=== PATIENT | male | born 1935 | race Caucasian/White ===

== ENCOUNTER → 2017-11-03 | Outpatient (CLI) | payer MEDICARE, OTHER ==
--- NOTE | 2017-11-03 14:37 | RADIOLOGY REPORT (SQ) ---
EXAM DESCRIPTION: CHEST PA/LATERAL COMPLETED DATE/TIME: 11/03/2017 2:19 pm REASON FOR STUDY: PLEURAL EFFUSION COMPARISON: AP chest 01/28/2015, 01/27/2015 Abdominal films 01/27/2015 CT abdomen pelvis 01/27/2015 EXAM PARAMETERS: NUMBER OF VIEWS: two views TECHNIQUE: Digital Frontal and Lateral radiographic views of the chest acquired. RADIATION DOSE: NA LIMITATIONS: none FINDINGS: LUNGS AND PLEURA: Chronic blunting in the left lateral costophrenic sulcus is present unch anged 2014, likely representing a small loculated effusion. Few left retrocardiac air bronchograms from chronic collapse/ consolidation unchanged from 2015. Right hemithorax unremarkable. No right or left pneumothorax MEDIASTINUM AND HILAR STRUCTURES: No masses or contour abnormalities. HEART AND VASCULAR STRUCTURES: No cardiomegaly. Old sternotomy for CABG BONES: No acute findings. HARDWARE: Old sternotomy for CABG OTHER: No other significant finding. IMPRESSION: Chronic loculated left pleural effusion unchanged from plain films in 2015 Chronic scarring or atelectasis at the left lung base Old sternotomy for CABG. No cardiomegaly TECHNICAL DOCUMENTATION: JOB ID: [id number] [employer]- All Rights Reserved Reading location - IP/workstation name: [email or web address]
== END ==
LOC: OD 10:16
PROVIDERS: ATTEND Specialist
DX: J90 Pleural effusion, not elsewhere classified (principal)
CPT/HCPCS: 71046

== ENCOUNTER 2019-01-20 09:02 | Observation (INO) | payer MEDICARE, OTHER ==
--- NOTE | 2019-01-20 12:44 | ER Document Report ---
Entered by SEAN COON SCRIBE 01/20/19 1125 Acting as scribe for:JORDAN CHAUDHARY MD ED Fall - General Chief Complaint: Fall Stated Complaint: FALL/BACK AND LEFT KNEE PAIN Time Seen by Provider: 01/20/19 11:01 Mode of Arrival: Ambulatory Information source: Patient Notes: Patient is an 83-year-old male who presents to the emergency department today with complaints of a fall that occurred prior to arrival. Patient states he was bending over to bean picker an ice cube and lost his balance, falling backwards. Patient states his back struck cabinets and then he lied down to the floor. Patient complains of right mid back pain. Patient also has skin tears to bila teral elbows and left knee discomfort. Patient states he does not think he hit his head. TRAVEL OUTSIDE OF THE [place] IN LAST 30 DAYS: No - Related data Allergies/Adverse Reactions: Penicillins Allergy (Unknown, Verified 01/20/19 09:14) procainamide [Procainamide] Allergy (Verified 01/20/19 09:14) Past Medical History - General Information source: Patient - Social History Smoking Status: Current Every Day Smoker - smokes 1 cigar daily Cigarette use (# per day): No - quit in 1977 Frequency of alcohol use: every evening Drug Abuse: None Lives with: Family Family History: Reviewed & Not Pertinent Patient has suicidal ideation: No Patient has homicidal ideation: No - Past Medical History Cardiac Medical History: Reports: Hx Coronary Artery Disease, Hx Heart Attack, Hx Hypercholesterolemia, Hx Hypertension Endocrine Medical History: Reports: Hx Diabetes Mellitus Type 2 - no med post weight loss Past Surgical History: Reports: Hx Appendectomy, Hx Carotid Endarterectomy - left, Hx Coronary Artery Bypass Graft, Hx Inguinal Hernia - left, Hx Tonsillec julia, Other - Parotid gland removed due to obstruction Review of Systems - Review of Systems Constitutional: No symptoms reported EENT: No symptoms reported Cardiovascular: No symptoms reported Respiratory: No symptoms reported Gastrointestinal: No symptoms reported Genitourinary: No symptoms reported Male Genitourinary: No symptoms reported Musculoskeletal: See HPI, Back pain, Joint pain - left knee pain Skin: See HPI, Other - skin tears to bilateral elbows Hematologic/Lymphatic: No symptoms reported Neurological/Psychological: No symptoms reported -: Yes All other systems reviewed and negative Physical Exam - Vital signs Vitals: Temp Pulse Resp BP Pulse Ox 97.6 F 70 16 136/50 H 96 01/20/19 09:07 01/20/19 09:07 01/20/19 09:07 01/20/19 09:07 01/20/19 09:07 - Notes Notes: Physical Exam: General: Alert, appears well. HEENT: Normocephalic. Atraumatic. PERRL. Extraocular movements intact. Oropharynx clear. Neck: Supple. Non-tender. Respiratory: No respiratory distress. Clear and equal breath sounds bilaterally. Cardiovascular: 3/6 systolic murmur. Regular rate and rhythm. Abdominal: Normal Inspection. Non-tender. No distension. Normal Bowel Sounds. Back: Mid to lower thoracic spine tenderness with palpation. Upper lumbar spine tenderness with palpation. Right sided posterior rib tenderness with palpation. Extremities: Moves all four extremities. Upper extremities: Normal inspection. Normal ROM. Lower extremities: Minimal left lateral anterior knee tenderness with palpation. No effusion. No ligamentous laxity. No pain with flexion or extension of the knee. No pain with anterior and posterior drawer testing. Neurological: Normal cognition. AAOx4. Normal speech. Psychological: Normal affect. Normal Mood. Skin: Warm. Dry. Normal color. Course - Vital Signs Vital signs: Temp Pulse Resp BP Pulse Ox 97.6 F 70 14 142/61 H 97 01/20/19 09:07 01/20/19 09:07 01/20/19 14:02 01/20/19 14:02 01/20/19 14:02 - Laboratory Result Diagrams: 01/20/19 14:40 01/20/19 14:40 Laboratory results interpreted by me: 01/20/19 01/20/19 01/20/19 11:45 14:40 14:40 WBC 3.6 L RBC 2.69 L Hgb 9.5 L Hct 27.9 L MCV 103 H MCH 35.4 H RDW 14.5 H Plt Count 130 L Lymph % (Auto) 11.3 L Absolute Lymphs (auto) 0.4 L Sodium 136.6 L Albumin 3.1 L Urine Ketones TRACE H Ur Leukocyte Esterase MODERATE H Urine Ascorbic Acid 20 H - Diagnostic Test Radiology reviewed: Image reviewed, Reports reviewed - CT scan of the lumbar spine shows multilevel degenerative changes with out evidence for acute fracture. CT scan of the chest and thoracic spine shows nondisplaced fracture posterior right eighth rib, lateral right ninth rib, and mildly displaced fracture at the lateral right 10th rib. There is no acute fracture or s ubluxation of the thoracic spine. There is a 1 cm nodularity along the right side of the trachea at the thoracic and, correlation with bronchoscopy recommended. There are airspace opacities at the right lower lobe, left lower lobe and lingula which may be atelectasis versus pneumonia. - EKG Interpretation by Me EKG shows normal: Sinus rhythm, [place], Intervals, ST-T Waves. abnormal: QRS Complexes - Probable old anterior WI Rate: Normal - 70 Rhythm: NSR When compared to previous EKG there are: No significant change - Consults Seymour Fu NP Time consulted: 14:16 Consulted provider: will come to ER Critical Care Note - Critical Care Note Total time excluding time spent on procedures (mins): 30 Discharge - Discharge Clinical Impression: Atelectasis of both lungs Right rib fracture Qualifiers: Encounter type: initial encounter Rib fracture type: multiple ribs Fracture typ e: closed Qualified Code(s): S22.41XA - Multiple fractures of ribs, right side, initial encounter for closed fracture Urinary tract infection Qualifiers: Urinary tract infection type: site unspecified Hematuria presence: without hematuria Qualified Code(s): N39.0 - Urinary tract infection, site not specified Condition: Stable Disposition: ADMITTED INPATIENT Unit Admitted: AYLA Scribe Attestation: 01/20/19 11:58 I personally performed the services described in the documentation, reviewed and edited the documentation which was dictated to the scribe in my presence, and it accurately records my words and actions. I personally performed the services described in the documentation, reviewed and edited the documentation which was dictated to the scribe in my presence, and it accurately records my words and actions.
--- NOTE | 2019-01-20 13:49 | RADIOLOGY REPORT (SQ) ---
EXAM DESCRIPTION: CT CHEST WITHOUT; CT THORACIC SPINE WITHOUT COMPLETED DATE/TIME: 01/20/2019 12:53 pm REASON FOR STUDY: Fall, R post rib,thoracic spine,lumbar spine pain COMPARISON: Chest x-ray 11/03/2017, CT abdomen and pelvis 03/29/2015. CT thoracic spine 01/20/2019. TECHNIQUE: CT scan performed of the chest and thoracic spine without intravenous contrast. Images r eviewed with lung, soft tissue and bone windows. Reconstructed coronal and sagittal MPR images revie wed. All images stored on PACS. All CT scanners at this facility use dose modulation, iterative reconstruction, and/or weight based d osing when appropriate to reduce radiation dose to as low as reasonably achievable (ALARA). [facility]: Dose Right [facility]: CareDose [facility]: Dose Right [facility]: Teradose 4D [facility]: Smart Technologies RADIATION DOSE: CT Rad equipment meets quality standard of care and radiation dose reduction techniq ues were employed. CTDIvol: 7.7 mGy. DLP: 343 mGy-cm.; CT Rad equipment meets quality standard of car e and radiation dose reduction techniques were employed. CTDIvol: 21.6 mGy. DLP: 670 mGy-cm. mGy. LIMITATIONS: No technical limitations. FINDINGS: LUNGS AND PLEURA: There are mild bile emphysematous changes. There are left-sided pleural calcifications. There is a small left-sided pleural effusion with airspace opacities at the left lo wer lobe and lingula. Airspace opacities are also noted throughout the right lower lobe. No pneumot horax. HILAR AND MEDIASTINAL STRUCTURES: No identified masses or abnormal nodes. No pneumomediastinum or me diastinal hematoma. There is a 1.0 cm nodularity along the right side of the trachea at the thoracic inlet. HEART AND VASCULAR STRUCTURES: Status post open heart surgery. No pericardial effusion. Atheroscler otic calcifications at the thoracic aorta. No thoracic aortic aneurysm. UPPER ABDOMEN: No significant findings. Limited exam. BONES: Degenerative changes are noted at the right glenohumeral joint. There are healed left-sided r ib fractures. No displaced fracture at the sternum. There is a nondisplaced fracture at the posterior right 8th rib. There is a nondisplaced fracture at the lateral right 9th rib. There is a mildly displaced fracture at the lateral right 10th rib. HARDWARE: Sternotomy wires are present. THORACIC SPINE: There is increased thoracic kyphosis the vertebral body heights and alignment are ma intained. There is multilevel degenerative disc disease and osteophytosis. There is no acute fractu re or traumatic subluxation. The prevertebral and paraspinal soft tissues are unremarkable. IMPRESSION: 1. Acute right rib fractures. No pneumothorax. Airspace opacities at the right lower lobe, may represent pneumonia vs pulmonary contusions, given the history of recent trauma. 2. Small left-sided pleural effusion with airspace opacities at the left lower lobe and lingula, may be secondary to atelectasis or pneumonia. 3. No acute fracture at the thoracic spine. Degenerative changes. 4. 1.0 cm nodularity along the right side of the trachea at the thoracic inlet. Correlation with br onchoscopy recommended to evaluate for an endobronchial lesion. TECHNICAL DOCUMENTATION: JOB ID: [id number] Quality ID # [id number]: Final reports with documentation of one or more dose reduction techniques (e.g., Au tomated exposure control, adjustment of the mA and/or kV according to patient size, use of iterative reconstruction technique) 2010 [employer]- All Rights Reserved Reading location - IP/workstation name: [email or web address]
--- NOTE | 2019-01-20 13:58 | RADIOLOGY REPORT (SQ) ---
EXAM DESCRIPTION: CT LUMBAR SPINE WITHOUT COMPLETED DATE/TIME: 01/20/2019 12:53 pm REASON FOR STUDY: Fall, R post rib,thoracic spine,lumbar spine pain COMPARISON: CT abdomen and pelvis 01/27/2015, CT chest and CT thoracic spine 01/20/2019. TECHNIQUE: Axial images acquired through the lumbar spine without intravenous contrast. Images revie wed with lung, soft tissue and bone windows. Reconstructed coronal and sagittal MPR images reviewed. Images stored on PACS. All CT scanners at this facility use dose modulation, iterative reconstruction, and/or weight based d osing when appropriate to reduce radiation dose to as low as reasonably achievable (ALARA). [facility]: Dose Right [facility]: CareDose [facility]: Dose Right [facility]: Teradose 4D [facility]: [employer] RADIATION DOSE: mGy. LIMITATIONS: None. FINDINGS: SOFT TISSUES: No soft tissue swelling. ALIGNMENT: There is levoscoliosis of the lumbar spine. VERTEBRAL BODIES: No acute fracture or dislocation. DISCS: There is multilevel degenerative disc disease and osteophytosis. PEDICLES, TRANSVERSE PROCESSES: No acute fracture or dislocation. FACETS, POSTERIOR ELEMENTS: No acute fracture or dislocation. There is multilevel facet arthropathy. Varying degrees of spinal stenosis throughout the lumbar spine, worse at L4-L5. HARDWARE: None in the spine. VISUALIZED RIBS: No fractures. OTHER: Atherosclerotic calcifications at the abdominal aorta and its branches. Ectatic infrarenal ab dominal aorta measuring up to 2.2 cm. IMPRESSION: Multilevel degenerative changes at the lumbar spine with no evidence for acute fracture. TECHNICAL DOCUMENTATION: JOB ID: [id number] [facility] Quality ID # [id number]: Final reports with documentation of one or more dose reduction techniques (e.g., Au tomated exposure control, adjustment of the mA and/or kV according to patient size, use of iterative reconstruction technique) 2010 [employer]- All Rights Reserved Reading location - IP/workstation name: [email or web address]
[2019-01-20 14:42] LABS: AMORPHOUS SEDIMENT,URINE TRACE /HPF; APPEARANCE,URINE CLOUDY; BILIRUBIN,URINE NEGATIVE (NEGATIVE); COLOR,URINE YELLOW; GLUCOSE, URINE NEGATIVE (NEGATIVE); KETONES,URINE TRACE mg/dL (NEGATIVE); LEUKOCYTE ESTERASE,URINE MODERATE (NEGATIVE); NITRITE,URINE NEGATIVE (NEGATIVE); PROTEIN,URINE NEGATIVE (NEGATIVE); URINE SPECIFIC GRAVITY 1.017; UROBILINOGEN,URINE NEGATIVE mg/dL (<2.0)
[2019-01-20] MEDS ORDERED: TEMAZEPAM 7.5 MG CAPSULE PO PRN (14:47)
[2019-01-20] MEDS ORDERED: ONDANSETRON HCL INJ/PF 4 MG/2 ML SDV IV PRN (14:47)
[2019-01-20] MEDS ORDERED: NORMAL SALINE 1000 ML 1,000 ML IV PRN (14:47)
[2019-01-20] MEDS ORDERED: MAG HYDROX/AL HYDROX/SIMETH SUSP 30 ML UDCUP PO PRN (14:47)
[2019-01-20] MEDS ORDERED: HYDROMORPHONE HCL INJ/PF 2 MG/ML AMPULE IV PRN (15:04)
--- NOTE | 2019-01-20 15:04 | PDOC H&P ---
History of Present Illness Admission Date/PCP: 01/20/19 14:45 JOYCELYN GIBSON MD Patient complains of: Rib pain History of Present Illness: RAYMOND CYR is a 83 year old male who presents emergency department with complaints of a fall that occurred on prior date. Patient states his been over picking up an ice cube lost his balance and fell backwards. He states he is back stretch And he lie down on the floor. Patient complains of right mid back pain was found to have multiple rib fractures. Patient was also found to have an incidental bronchial lesion. Patient has a skin tears on his bilateral elbows and left knee discomfort. He has had no treatment prior to arrival all active is aggravating factor. Past Medical History Cardiac Medical History: Reports: Coronary Artery Disease, Myocardial Infarction , Hyperlipidema, Hypertension Endocrine Medical History: Reports: Diabetes Mellitus Type 2 - no med post weight loss Past Surgical History Past Surgical History: Reports: Appendectomy, Carotid Endarterectomy - left, Coronary Artery Bypass Graft, Tonsillectomy, Other - Parotid gland removed due to obstruction Social History Information Source: Patient Lives with: Family Smoking Status: Current Every Day Smoker - smokes 1 cigar daily Frequency of Alcohol Use: Social Amount of Alcoholic Beverages Per Day: Several drinks daily Hx Recreational Drug Use: No Drugs: None Hx Prescription Drug Abuse: No - Advance Directive Resuscitation Status: Do Not Resuscitate Family History Family History: Hypertension Parental Family History Reviewed: Yes Children Family History Reviewed: Yes Sibling(s) Family History Reviewed.: Yes Medication/Allergy Allergies/Adverse Reactions: Penicillins Allergy (Unknown, Verified 01/20/19 09:14) procainamide [Procainamide] Allergy (Verified 01/20/19 09:14) Review of Systems Constitutional: ABSENT: chills, fever(s), headache(s), weight gain, weight loss Eyes: ABSENT: visual disturbances Ears: ABSENT: hearing changes Cardiovascular: ABSENT: chest pain, dyspnea on exertion, edema, orthropnea, palpitations Respiratory: ABSENT: cough, hemoptysis Gastrointestinal: ABSENT: abdominal pain, constipation, diarrhea, hematemesis, hematochezia, nausea, vomiting Genitourinary: ABSENT: dysuria, hematuria Musculoskeletal: PRESENT: other - Rib pain. ABSENT: joint swelling Integumentary: ABSENT: rash, wounds Neurological: ABSENT: abnormal gait, abnormal speech, confusion, dizziness, focal weakness, syncope Psychiatric: ABSENT: anxiety, depression, homidical ideation, suicidal ideation Endocrine: ABSENT: cold intolerance, heat intolerance, polydipsia, polyuria Hematologic/Lymphatic: ABSENT: easy bleeding, easy bruising Physical Exam Vital Signs: Temp Pulse Resp BP Pulse Ox 97.6 F 70 14 142/61 H 97 01/20/19 09:07 01/20/19 09:07 01/20/19 14:02 01/20/19 14:02 01/20/19 14:02 Intake & Output 01/19/19 01/20/19 01/21/19 06:59 06:59 06:59 Weight 56.699 kg General appearance: PRESENT: no acute distress, well-developed, well-nourished Head exam: PRESENT: atraumatic, normocephalic Eye exam: PRESENT: conjunctiva pink, EOMI, PERRLA. ABSENT: scleral icterus Ear exam: PRESENT: normal external ear exam Mouth exam: PRESENT: moist, tongue midline Neck exam: ABSENT: carotid bruit, JVD, lymphadenopathy, thyromegaly Respiratory exam: PRESENT: clear to auscultation bela. ABSENT: rales, rhonchi, wheezes Cardiovascular exam: PRESENT: RRR. ABSENT: diastolic murmur, rubs, systolic murmur Pulses: PRESENT: normal dorsalis pedis pul Vascular exam: PRESENT: normal capillary refill GI/Abdominal exam: PRESENT: normal bowel sounds, soft. ABSENT: distended, guarding, mass, organolmegaly, rebound, tenderness Rectal exam: PRESENT: deferred Extremities exam: PRESENT: full ROM. ABSENT: calf tenderness, clubbing, pedal edema Musculoskeletal exam: PRESENT: other - Tenderness on palpation of his thorax. Neurological exam: PRESENT: alert, awake, oriented to person, oriented to place, oriented to time, oriented to situation, CN II-XII grossly intact. ABSENT: motor sensory deficit Psychiatric exam: PRESENT: appropriate affect, normal mood. ABSENT: homicidal ideation, suicidal ideation Skin exam: PRESENT: dry, intact, warm, other - Skin tears on bilateral elbows. ABSENT: cyanosis, rash Results Laboratory Results: 01/20/19 11:45 Urine Color YELLOW Urine Appearance CLOUDY Urine pH 7.0 Ur Specific [place] 1.017 Urine Protein NEGATIVE Urine Glucose (UA) NEGATIVE Urine Ketones TRACE H Urine Blood NEGATIVE Urine Nitrite NEGATIVE Ur Leukocyte Esterase MODERATE H Urine WBC (Auto) >182 Urine RBC (Auto) 5 Impressions: Chest CT 01/20/19 11:19 IMPRESSION: 1. Acute right rib fractures. No pneumothorax. Airspace opacities at the right lower lobe, may represent pneumonia vs pulmonary contusions, given the history of recent trauma. 2. Small left-sided pleural effusion with airspace opacities at the left lower lobe and lingula, may be secondary to atelectasis or pneumonia. 3. No acute fracture at the thoracic spine. Degenerative changes. 4. 1.0 cm nodularity along the right side of the trachea at the thoracic inlet. Correlation with bronchoscopy recommended to evaluate for an endobronchial lesion. Lumbar Spine CT 01/20/19 11:19 IMPRESSION: Multilevel degenerative changes at the lumbar spine with no evidence for acute fracture. Thoracic Spine CT 01/20/19 11:19 IMPRESSION: 1. Acute right rib fractures. No pneumothorax. Airspace opacities at the right lower lobe, may represent pneumonia vs pulmonary c ontusions, given the history of recent trauma. 2. Small left-sided pleural effusion with airspace opacities at the left lower lobe and lingula, may be secondary to atelectasis or pneumonia. 3. No acute fracture at the thoracic spine. Degenerative changes. 4. 1.0 cm nodularity along the right side of the trachea at the thoracic inlet. Correlation with bronchoscopy recommended to evaluate for an endobronchial lesion. Assessment and Plan - Plan Summary Summary: 01/20/2019- Intractable pain from multiple rib fractures-admit to IMCU for constant monitoring. Percocet 5 mg / 325 mg 1 every 4 hours as needed or Dilaudid 1 mg IV every 3 hours. For pain. We will continue to follow. Multiple skin tears-nursing to provide wound management Bronchial lesion-consult Dr. Hernandez for possible bronchoscopy for evaluation. Laboratory database pending at this time will await laboratory database make change plan of care as appropriate. - Time Time Spent with patient: 35 or more minutes
[2019-01-20 15:05] LABS: ABSOLUTE EOSINOPHILS # (AUTO) 0.1 10^3/uL (0.0-0.6); ABSOLUTE LYMPHOCYTES (AUTO) 0.4 10^3/uL (0.5-4.7); ABSOLUTE MONOCYTES (AUTO) 0.3 10^3/uL (0.1-1.4); ABSOLUTE NEUT (AUTO) 2.7 10^3/uL (1.7-8.2); BASOPHILS % (AUTO) 0.8 % (0-2); HEMATOCRIT 27.9 % (37.9-51.0); HEMOGLOBIN 9.5 g/dL (13.5-17.0); LYMPHOCYTES % (AUTO) 11.3 % (13-45); MEAN CORPUSCULAR HEMOGLOBIN 35.4 pg (27.0-33.4); MEAN CORPUSCULAR HGB CONC 34.2 g/dL (32.0-36.0); MEAN CORPUSCULAR VOLUME 103 fl (80-97); MONOCYTES % (AUTO) 8.6 % (3-13); PLATELET COUNT 130 10^3/uL (150-450); RED BLOOD COUNT 2.69 10^6/uL (4.35-5.55); RED CELL DISTRIBUTION WIDTH 14.5 % (11.5-14.0); SEGMENTED NEUTROPHILS % (AUTO) 76.3 % (42-78); TOTAL CELLS COUNTED % (AUTO) 100 %; WHITE BLOOD COUNT 3.6 10^3/uL (4.0-10.5)
[2019-01-20 15:22] LABS: ALBUMIN 3.1 g/dL (3.5-5.0); ALKALINE PHOSPHATASE 67 U/L (38-126); ANION GAP 6 (5-19); ASPARTATE AMINO TRANSFERASE 29 U/L (17-59); BILIRUBIN,DIRECT 0.1 mg/dL (0.0-0.4); BILIRUBIN,TOTAL 0.5 mg/dL (0.2-1.3); BLOOD UREA NITROGEN 19 mg/dL (7-20); CALCIUM 8.9 mg/dL (8.4-10.2); CARBON DIOXIDE 29 mmol/L (22-30); CHLORIDE 102 mmol/L (98-107); CREATINE KINASE 57 U/L (55-170); GLUCOSE 102 mg/dL (75-110); TOTAL PROTEIN 6.6 g/dL (6.3-8.2)
--- NOTE | 2019-01-20 19:23 | EKG REPORT ---
SEVERITY:- ABNORMAL ECG - SINUS RHYTHM ABNRM R PROG, CONSIDER ASMI OR LEAD PLACEMENT : Confirmed by: Ammy Singleton MD 20-Jan-2019 19:22:58
[2019-01-20] MEDS: HEPARIN SOD (PORCINE) 5,000 UNIT/ML 1 ML VIAL SUBCUT SCH (21:15)
[2019-01-20] MEDS: OXYCODONE-ACETAMINOPHEN 5-325 MG TABLET PO PRN (23:58)
[2019-01-21] MEDS: HEPARIN SOD (PORCINE) 5,000 UNIT/ML 1 ML VIAL SUBCUT SCH ×3 (05:36→21:19)
[2019-01-21 05:55] LABS: HEMATOCRIT 24.3 % (37.9-51.0); HEMOGLOBIN 8.3 g/dL (13.5-17.0); MEAN CORPUSCULAR HEMOGLOBIN 35.2 pg (27.0-33.4); MEAN CORPUSCULAR HGB CONC 34.2 g/dL (32.0-36.0); MEAN CORPUSCULAR VOLUME 103 fl (80-97); PLATELET COUNT 111 10^3/uL (150-450); RED BLOOD COUNT 2.36 10^6/uL (4.35-5.55); RED CELL DISTRIBUTION WIDTH 14.3 % (11.5-14.0); WHITE BLOOD COUNT 3.4 10^3/uL (4.0-10.5)
[2019-01-21 06:20] LABS: BLOOD UREA NITROGEN 18 mg/dL (7-20); CALCIUM 8.3 mg/dL (8.4-10.2); CHLORIDE 105 mmol/L (98-107); GLUCOSE 84 mg/dL (75-110); PHOSPHORUS 3.6 mg/dL (2.5-4.5); POTASSIUM 3.9 mmol/L (3.6-5.0)
[2019-01-21 06:25] LABS: CARBON DIOXIDE 29 mmol/L (22-30)
[2019-01-21 06:29] LABS: ANION GAP 4 (5-19)
[2019-01-21] MEDS ORDERED: INFLUENZA QUAD (6MOS+) 2019-20 VAC 0.5 ML SYR IM ONE (08:00)
--- NOTE | 2019-01-21 09:13 | PDOC PROGRESS REPORT ---
Subjective Progress Note for:: 01/21/19 Subjective:: 01/21/2019-improved pain control at this time. Reason For Visit: INTRACTABLE PAIN,MULTIPLE RIB FRACTURES,BRONCHIAL Physical Exam Vital Signs: Temp Pulse Resp BP Pulse Ox 98.2 F 66 16 111/45 L 96 01/21/19 03:30 01/21/19 06:52 01/21/19 03:30 01/21/19 03:30 01/21/19 03:30 Intake & Output 01/20/19 01/21/19 01/22/19 06:59 06:59 06:59 Intake Total 150 Output Total 625 Balance -475 Weight 57.7 kg General appearance: PRESENT: no acute distress, well-developed, well-nourished Neck exam: ABSENT: carotid bruit, JVD, lymphadenopathy, thyromegaly Respiratory exam: PRESENT: clear to auscultation bela. ABSENT: rales, rhonchi, wheezes Cardiovascular exam: PRESENT: RRR. ABSENT: diastolic murmur, rubs, systolic murmur Pulses: PRESENT: +1 pedal pulses bilateral Vascular exam: PRESENT: normal capillary refill GI/Abdominal exam: PRESENT: normal bowel sounds, soft. ABSENT: distended, guarding, mass, organolmegaly, rebound, tenderness Extremities exam: PRESENT: full ROM. ABSENT: calf tenderness, clubbing, pedal edema Neurological exam: PRESENT: alert, awake, oriented to person, oriented to place, oriented to time, oriented to situation, CN II-XII grossly intact. ABSENT: motor sensory deficit Psychiatric exam: PRESENT: appropriate affect, normal mood. ABSENT: homicidal ideation, suicidal ideation Skin exam: PRESENT: other - Skin tears bilateral elbows Results Laboratory Results: 01/21/19 05:13 01/21/19 05:13 01/20/19 01/20/19 01/20/19 11:45 14:40 14:40 WBC 3.6 L RBC 2.69 L Hgb 9.5 L Hct 27.9 L MCV 103 H MCH 35.4 H MCHC 34.2 RDW 14.5 H Plt Count 130 L Seg Neutrophils % 76.3 Sodium 136.6 L Potassium 4.0 Chloride 102 Carbon Dioxide 29 Anion Gap 6 BUN 19 Creatinine 0.61 Est GFR ( Amer) > 60 Glucose 102 Calcium 8.9 Phosphorus Magnesium Total Bilirubin 0.5 AST 29 Alkaline Phosphatase 67 Total Protein 6.6 Albumin 3.1 L Urine Color YELLOW Urine Appearance CLOUDY Urine pH 7.0 Ur Specific [place] 1.017 Urine Protein NEGATIVE Urine Glucose (UA) NEGATIVE Urine Ketones TRACE H Urine Blood NEGATIVE Urine Nitrite NEGATIVE Ur Leukocyte Esterase MODERATE H Urine WBC (Auto) >182 Urine RBC (Auto) 5 01/21/19 01/21/19 05:13 05:13 WBC 3.4 L RBC 2.36 L Hgb 8.3 L Hct 24.3 L MCV 103 H MCH 35.2 H MCHC 34.2 RDW 14.3 H Plt Count 111 L Seg Neutrophils % Sodium 138.4 Potassium 3.9 Chloride 105 Carbon Dioxide 29 Anion Gap 4 L BUN 18 Creatinine 0.69 Est GFR ( Amer) > 60 Glucose 84 Calcium 8.3 L Phosphorus 3.6 Magnesium 1.7 Total Bilirubin AST Alkaline Phosphatase Total Protein Albumin Urine Color Urine Appearance Urine pH Ur Specific [place] Urine Protein Urine Glucose (UA) Urine Ketones Urine Blood Urine Nitrite Ur Leukocyte Esterase Urine WBC (Auto) Urine RBC (Auto) 01/20/19 01/20/19 14:40 14:40 Creatine Kinase 57 Troponin I < 0.012 Impressions: Chest CT 01/20/19 11:19 IMPRESSION: 1. Acute right rib fractures. No pneumothorax. Airspace opacities at the right lower lobe, may represent pneumonia vs pulmonary contusions, given the history of recent trauma. 2. Small left-sided pleural effusion with airspace opacities at the left lower lobe and lingula, may be secondary to atelectasis or pneumonia. 3. No acute fracture at the thoracic spine. Degenerative changes. 4. 1.0 cm nodularity along the right side of the trachea at the thoracic inlet. Correlation with bronchoscopy recommended to evaluate for an endobronchial lesion. Lumbar Spine CT 01/20/19 11:19 IMPRESSION: Multilevel degenerative changes at the lumbar spine with no evidence for acute fracture. Thoracic Spine CT 01/20/19 11:19 IMPRESSION: 1. Acute right rib fractures. No pneumothorax. Airspace opacities at the right lower lobe, may represent pneumonia vs pulmonary contusions, given the history of recent trauma. 2. Small left-sided pleural effusion with airspace opacities at the left lower lobe and lingula, may be secondary to atelectasis or pneumonia. 3. No acute fracture at the thoracic spine. Degenerative changes. 4. 1.0 cm nodularity along the right side of the trachea at the thoracic inlet. Correlation with bronchoscopy recommended to evaluate for an endobronchial lesion. Assessment and Plan - Plan Summary Summary: 01/20/2019- Intractable pain from multiple rib fractures-admit to IMCU for constant monitoring. Percocet 5 mg / 325 mg 1 every 4 hours as needed or Dilaudid 1 mg IV every 3 hours. For pain. We will continue to follow. Multiple skin tears-nursing to provide wound management Bronchial lesion-consult Dr. Hernandez for possible bronchoscopy for evaluation. Laboratory database pending at this time will await laboratory database make change plan of care as appropriate. 01/21/2019- Intractable pain. Continue PRN pain medications. Anticipate discharge home tomorrow with oral pain management. Multiple skin tears-nursing providing wound management this time. Bronchial lesion-await Dr. Hernandez. Possible bronchoscopy. Patient could obtain this on an outpatient basis. After database shows no significant findings other than anemia which is chronic in nature.. Continue to follow. - Time Time Spent with patient: 15-24 minutes
[2019-01-21] MEDS: DOCUSATE SODIUM 100 MG CAPSULE PO SCH (09:28)
[2019-01-21] MEDS: METOPROLOL TARTRATE 25 MG TABLET PO SCH ×2 (14:20→21:16)
[2019-01-21] MEDS: ASPIRIN 81 MG TABLET, ENT COATED PO SCH (14:20)
[2019-01-21] MEDS: EZETIMIBE 10 MG TABLET PO SCH (14:20)
[2019-01-21] MEDS ORDERED: TAMSULOSIN HCL 0.4 MG CAP.SR.24H PO SCH ×2 (18:00→22:00)
[2019-01-21] MEDS: BRIMONIDINE TARTRATE 0.2% OPH SOLN 5 ML OU SCH (18:16)
[2019-01-21] MEDS: DORZOLAMIDE HCL 2%/TIMOLOL MALEAT 0.5% OPH SOLN 10 ML OU SCH (18:17)
[2019-01-21] MEDS: OXYCODONE-ACETAMINOPHEN 5-325 MG TABLET PO PRN (21:17)
[2019-01-21] MEDS ORDERED: LATANOPROST 0.005% OPH SOLN 2.5 ML OU SCH (22:00)
[2019-01-22] MEDS: HEPARIN SOD (PORCINE) 5,000 UNIT/ML 1 ML VIAL SUBCUT SCH (05:04)
--- NOTE | 2019-01-22 09:25 | PDOC DISCHARGE SUMMARY ---
Impression - Admit/DC Date/PCP Admission Date/Primary Care Provider: 01/20/19 14:45 JOYCELYN BLUNT MD Discharge Date: 01/22/19 - Assessment Summary: 01/20/2019- Intractable pain from multiple rib fractures-admit to [facility] for constant monitoring. Percocet 5 mg / 325 mg 1 every 4 hours as needed or Dilaudid 1 mg IV every 3 hours. For pain. We will continue to follow. Multiple skin tears-nursing to provide wound management Bronchial lesion-consult Dr. Hernandez for possible bronchoscopy for evaluation. Laboratory database pending at this time will await laboratory database make change plan of care as appropriate. 01/21/2019- Intractable pain. Continue PRN pain medications. Anticipate discharge home tomorrow with oral pain management. Multiple skin tears-nursing providing wound management this time. Bronchial lesion-await Dr. Hernandez. Possible bronchoscopy. Patient could obtain this on an outpatient basis. After database shows no significant findings other than anemia which is chronic in nature.. Continue to follow. - Additional Information Resuscitation Status: Do Not Resuscitate Discharge Activity: Activity As Tolerated Referrals: JOYCELYN BLUNT MD [Primary Care Provider] - Follow up as needed SAIRA HERNANDEZ MD [ACTIVE STAFF] - (Bronchial lesion possible bronchoscopy needed) Prescriptions: Levofloxacin [Levaquin 500 mg Tablet] 500 mg PO DAILY #7 tablet Oxycodone HCl/Acetaminophen [Percocet 5-325 mg Tablet] 1 tab PO Q6HP PRN #15 tablet PRN Reason: Pain Home Medications: Ascorbic Acid [Vitamin C 500 mg Tablet] 500 mg PO DAILY 01/20/19 Aspirin [Ecotrin 81 mg EC Tablet] 81 mg PO DAILY 01/20/19 Brimonidine Tartrate [Alphagan 0.2% Oph Soln 5 ml] 1 drop OU BID 01/20/19 Calcium Carbonate [Calcium] 1,000 mg PO DAILY 01/20/19 Dorzolamide HCl/Timolol Maleat [Cosopt Eye Drops] 1 drop OU BID 01/20/19 Ezetimibe [Zetia 10 mg Tablet] 10 mg PO DAILY 01/20/19 Fluticasone Propionate [Flonase Nasal [place] 50 Mcg/[place] 16 gm] 1 spray NASL DAILY 01/20/19 Guaifenesin [Mucinex] 600 mg PO BID 01/20/19 Krill/[place]-3/Dha/Epa/Lipids [Krill Oil 300 mg Softgel] 1 cap PO DAILY 01/20/19 Latanoprost [Xalatan 0.005% Oph Soln 2.5 ml] 1 drop OU QHS 01/20/19 Lisinopril [Zestril] 20 mg PO DAILY 01/20/19 Metoprolol Tartrate [Lopressor 25 mg Tablet] 12.5 mg PO Q12 01/20/19 Multivitamin [One-A-Day Essential] 1 tab PO DAILY 01/20/19 Psyllium Husk [Metamucil] 1 packet PO DAILY 01/20/19 Simvastatin [Zocor 20 mg Tablet] 20 mg PO QHS 01/20/19 Tamsulosin HCl [Flomax 0.4 mg Cap.sr] 0.4 mg PO QPM 01/20/19 Levofloxacin [Levaquin 500 mg Tablet] 500 mg PO DAILY #7 tablet 01/22/19 Oxycodone HCl/Acetaminophen [Percocet 5-325 mg Tablet] 1 tab PO Q6HP PRN #15 tablet 01/22/19 History of Present Illiness History of Present Illness: RAYMOND CYR is a 83 year old male who presents emergency department with complaints of a fall that occurred on prior date. Patient states his been over picking up an ice cube lost his balance and fell backwards. He states he is back stretch And he lie down on the floor. Patient complains of right mid back pain was found to have multiple rib fractures. Patient was also found to have an incidental bronchial lesion. Patient has a skin tears on his bilateral elbows and left knee discomfort. He has had no treatment prior to arrival all active is aggravating factor. Hospital Course Hospital Course: Patient was admitted on 01/20/2019 after having a fall the prior day at home. Patient laid on the floor for about 15 minutes and was able get himself up out of bed. Patient then called his neighbor the following day as his pain level became worse. Patient was found to have multiple rib fractures. Patient also found to have an incidental bronchial lesion for some setting up to see Dr. Hernandez on an outpatient basis for a possible bronchoscopy. Patient does have bilateral skin tears on both elbows. Patient is adamant about going home and I feel this appropriate this time. Give patient Percocet 5 mg / 325 mg 1 p.o. every 6 hours. #15 with no refills as well as Levaquin 500 mill grams p.o. daily x7 days for UTI. Patient will follow-up with Dr. Blunt. Physical Exam Vital Signs: Temp Pulse Resp BP Pulse Ox 98.5 F 77 16 141/47 H 95 01/22/19 08:08 01/22/19 08:08 01/22/19 08:08 01/22/19 08:08 01/22/19 08:08 Intake & Output 01/21/19 01/22/19 01/23/19 06:59 06:59 06:59 Intake Total 150 1590 Output Total 625 840 Balance -475 750 Weight 57.7 kg 58.4 kg General appearance: PRESENT: no acute distress, well-developed, well-nourished Head exam: PRESENT: atraumatic, normocephalic Eye exam: PRESENT: conjunctiva pink, EOMI, PERRLA. ABSENT: scleral icterus Ear exam: PRESENT: normal external ear exam Mouth exam: PRESENT: moist, tongue midline Neck exam: ABSENT: carotid bruit, JVD, lymphadenopathy, thyromegaly Respiratory exam: PRESENT: clear to auscultation bela. ABSENT: rales, rhonchi, wheezes Cardiovascular exam: PRESENT: RRR. ABSENT: diastolic murmur, rubs, systolic murmur Pulses: PRESENT: normal dorsalis pedis pul Vascular exam: PRESENT: normal capillary refill GI/Abdominal exam: PRESENT: normal bowel sounds, soft. ABSENT: distended, guarding, mass, organolmegaly, rebound, tenderness Rectal exam: PRESENT: deferred Extremities exam: PRESENT: full ROM. ABSENT: calf tenderness, clubbing, pedal edema Neurological exam: PRESENT: alert, awake, oriented to person, oriented to place, oriented to time, oriented to situation, CN II-XII grossly intact. ABSENT: motor sensory deficit Psychiatric exam: PRESENT: appropriate affect, normal mood. ABSENT: homicidal ideation, suicidal ideation Skin exam: PRESENT: dry, intact, warm, other - Scattered bruising. ABSENT: cyanosis, rash Results Laboratory Results: WBC 3.4 10^3/uL (4.0-10.5) L 01/21/19 05:13 RBC 2.36 10^6/uL (4.35-5.55) L 01/21/19 05:13 Hgb 8.3 g/dL (13.5-17.0) L 01/21/19 05:13 Hct 24.3 % (37.9-51.0) L 01/21/19 05:13 MCV 103 fl (80-97) H 01/21/19 05:13 MCH 35.2 pg (27.0-33.4) H 01/21/19 05:13 MCHC 34.2 g/dL (32.0-36.0) 01/21/19 05:13 RDW 14.3 % (11.5-14.0) H 01/21/19 05:13 Plt Count 111 10^3/uL (150-450) L 01/21/19 05:13 Lymph % (Auto) 11.3 % (13-45) L 01/20/19 14:40 [place] % (Auto) 8.6 % (3-13) 01/20/19 14:40 Eos % (Auto) 3.0 % (0-6) 01/20/19 14:40 Baso % (Auto) 0.8 % (0-2) 01/20/19 14:40 Absolute Neuts (auto) 2.7 10^3/uL (1.7-8.2) 01/20/19 14:40 Absolute Lymphs (auto) 0.4 10^3/uL (0.5-4.7) L 01/20/19 14:40 Absolute Monos (auto) 0.3 10^3/uL (0.1-1.4) 01/20/19 14:40 Absolute Eos (auto) 0.1 10^3/uL (0.0-0.6) 01/20/19 14:40 Absolute Basos (auto) 0.0 10^3/uL (0.0-0.2) 01/20/19 14:40 Seg Neutrophils % 76.3 % (42-78) 01/20/19 14:40 Sodium 138.4 mmol/L (137-145) 01/21/19 05:13 Potassium 3.9 mmol/L (3.6-5.0) 01/21/19 05:13 Chloride 105 mmol/L (98-107) 01/21/19 05:13 Carbon Dioxide 29 mmol/L (22-30) 01/21/19 05:13 Anion Gap 4 (5-19) L 01/21/19 05:13 BUN 18 mg/dL (7-20) 01/21/19 05:13 Creatinine 0.69 mg/dL (0.52-1.25) 01/21/19 05:13 Est GFR ( Amer) > 60 (>60) 01/21/19 05:13 Est GFR (MDRD) Non-Af > 60 (>60) 01/21/19 05:13 Glucose 84 mg/dL (75-110) 01/21/19 05:13 Calcium 8.3 mg/dL (8.4-10.2) L 01/21/19 05:13 Phosphorus 3.6 mg/dL (2.5-4.5) 01/21/19 05:13 Magnesium 1.7 mg/dL (1.6-2.3) 01/21/19 05:13 Total Bilirubin 0.5 mg/dL (0.2-1.3) 01/20/19 14:40 Direct Bilirubin 0.1 mg/dL (0.0-0.4) 01/20/19 14:40 Neonat Total Bilirubin Not Reportable 01/20/19 14:40 Neonat Direct Bilirubin Not Reportable 01/20/19 14:40 Neonat Indirect Bili Not Reportable 01/20/19 14:40 AST 29 U/L (17-59) 01/20/19 14:40 ALT 16 U/L (<50) 01/20/19 14:40 Alkaline Phosphatase 67 U/L (38-126) 01/20/19 14:40 Creatine Kinase 57 U/L (55-170) 01/20/19 14:40 Troponin I < 0.012 ng/mL 01/20/19 14:40 Total Protein 6.6 g/dL (6.3-8.2) 01/20/19 14:40 Albumin 3.1 g/dL (3.5-5.0) L 01/20/19 14:40 Urine Color YELLOW 01/20/19 11:45 Urine Appearance CLOUDY 01/20/19 11:45 Urine pH 7.0 (5.0-9.0) 01/20/19 11:45 Ur Specific [place] 1.017 01/20/19 11:45 Urine Protein NEGATIVE mg/dL (NEGATIVE) 01/20/19 11:45 Urine Glucose (UA) NEGATIVE mg/dL (NEGATIVE) 01/20/19 11:45 Urine Ketones TRACE mg/dL (NEGATIVE) H 01/20/19 11:45 Urine Blood NEGATIVE (NEGATIVE) 01/20/19 11:45 Urine Nitrite NEGATIVE (NEGATIVE) 01/20/19 11:45 Urine Bilirubin NEGATIVE (NEGATIVE) 01/20/19 11:45 Urine Urobilinogen NEGATIVE mg/dL (<2.0) 01/20/19 11:45 Ur Leukocyte Esterase MODERATE (NEGATIVE) H 01/20/19 11:45 Urine WBC (Auto) >182 /HPF 01/20/19 11:45 Urine RBC (Auto) 5 /HPF 01/20/19 11:45 Amorphous Sediment Auto TRACE /HPF 01/20/19 11:45 Urine Mucus (Auto) RARE /LPF 01/20/19 11:45 Urine Ascorbic Acid 20 (NEGATIVE) H 01/20/19 11:45 01/20/19 14:40 Troponin I < 0.012 Impressions: Chest CT 01/20/19 11:19 IMPRESSION: 1. Acute right rib fractures. No pneumothorax. Airspace opacities at the right lower lobe, may represent pneumonia vs pulmonary contusio ns, given the history of recent trauma. 2. Small left-sided pleural effusion with airspace opacities at the left lower lobe and lingula, may be secondary to atelectasis or pneumonia. 3. No acute fracture at the thoracic spine. Degenerative changes. 4. 1.0 cm nodularity along the right side of the trachea at the thoracic inlet. Correlation with bronchoscopy recommended to evaluate for an endobronchial lesion. Lumbar Spine CT 01/20/19 11:19 IMPRESSION: Multilevel degenerative changes at the lumbar spine with no evidence for acute fracture. Thoracic Spine CT 01/20/19 11:19 IMPRESSION: 1. Acute right rib fractures. No pneumothorax. Airspace opacities at the right lower lobe, may represent pneumonia vs pulmonary contusions, given the history of recent trauma. 2. Small left-sided pleural effusion with airspace opacities at the left lower lobe and lingula, may be secondary to atelectasis or pneumonia. 3. No acute fracture at the thoracic spine. Degenerative changes. 4. 1.0 cm nodularity along the right side of the trachea at the thoracic inlet. Correlation with bronchoscopy recommended to evaluate for an endobronchial lesion. Plan Time Spent: Greater than 30 Minutes Stroke Is this a Stroke Patient?: No Acute Heart Failure - Is this a Heart Failure Patient?: No
[2019-01-22] MEDS: DOCUSATE SODIUM 100 MG CAPSULE PO SCH (09:48)
[2019-01-22] MEDS: METOPROLOL TARTRATE 25 MG TABLET PO SCH (09:48)
[2019-01-22] MEDS: EZETIMIBE 10 MG TABLET PO SCH (09:48)
[2019-01-22] MEDS: ASPIRIN 81 MG TABLET, ENT COATED PO SCH (09:48)
[2019-01-22] MEDS: DORZOLAMIDE HCL 2%/TIMOLOL MALEAT 0.5% OPH SOLN 10 ML OU SCH (09:49)
[2019-01-22] MEDS: BRIMONIDINE TARTRATE 0.2% OPH SOLN 5 ML OU SCH (09:49)
[2019-01-22 10:24] VITALS: BP 154/60
== END 2019-01-22 11:15 | disposition home or self-care (01) ==
LOC: ER 09:02 → INTOOBSV 14:45 → EH 14:45 → 3S 17:48
PROVIDERS: ADMIT Hospitalist; ATTEND Hospitalist
DX: S22.41XA Multiple fractures of ribs, right side, initial encounter for closed fracture (principal); W18.09XA Striking against other object with subsequent fall, initial encounter; J98.09 Other diseases of bronchus, not elsewhere classified; S51.012A Laceration without foreign body of left elbow, initial encounter; S51.011A Laceration without foreign body of right elbow, initial encounter; Y92.009 Unspecified place in unspecified non-institutional (private) residence as the place of occurrence of the external cause; M25.562 Pain in left knee; J98.11 Atelectasis; N39.0 Urinary tract infection, site not specified; J90 Pleural effusion, not elsewhere classified; D64.9 Anemia, unspecified; Z66 Do not resuscitate; I25.10 Atherosclerotic heart disease of native coronary artery without angina pectoris; I25.2 Old myocardial infarction; F17.290 Nicotine dependence, other tobacco product, uncomplicated; Z23 Encounter for immunization; Z95.1 Presence of aortocoronary bypass graft; Z79.82 Long term (current) use of aspirin; Z79.899 Other long term (current) drug therapy
CPT/HCPCS: 93005; 99291; 36415 ×2; 87040; 87086; 82550; 83735; 84100; 85025; 85027; 87088; 80048; 80053; 81001; 84484; 87186; 71250; 72128; 72131; 90686; 94799; 93010; G0378 ×4; A9270 ×10; J3490 ×4; J7030